=== PATIENT | female | born 1970 | race Caucasian/White ===

== ENCOUNTER 2016-12-11 07:32 | Outpatient (CLI) | payer MEDICAID, OTHER | END 2016-12-11 07:33 | disposition home or self-care (01) | LOC: LAB.N 07:32 | PROVIDERS: ATTEND Physician Assistant | DX: R13.10 Dysphagia, unspecified (principal) | CPT/HCPCS: 87338 ==

== ENCOUNTER 2019-02-11 17:10 | Emergency (ER) | payer MEDICAID, OTHER ==
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
[2019-02-11] MEDS ORDERED: CETIRIZINE 10 MG TABLET PO STA (17:43)
[2019-02-11] MEDS ORDERED: CHERRY SYRUP 10 ML UDC PO ONE (17:43)
[2019-02-11] MEDS ORDERED: DEXAMETHASONE 10 MG/ML VIAL PO STA (17:43)
[2019-02-11] MEDS ORDERED: cephALEXin 250 MG CAPSULE PO STA (17:43)
[2019-02-11 18:20] VITALS: BP 92/55
== END 2019-02-11 18:26 | disposition home or self-care (01) ==
LOC: ED 17:10
DX: T63.441A Toxic effect of venom of bees, accidental (unintentional), initial encounter (principal); L03.115 Cellulitis of right lower limb; R21 Rash and other nonspecific skin eruption; F17.200 Nicotine dependence, unspecified, uncomplicated
CPT/HCPCS: 99283; 99284; A9270

== ENCOUNTER 2021-03-12 23:54 | Outpatient (CLI) | payer SELFPAY | END 2021-03-12 23:55 | disposition EMS.NT | LOC: EMS 23:54 | DX: Z03.89 Encounter for observation for other suspected diseases and conditions ruled out (principal) ==